=== PATIENT | female | born 1955 | race Caucasian/White ===

== ENCOUNTER 2017-08-13 13:06 | Outpatient (RCR) | payer OTHER | END 2017-08-20 13:27 | LOC: WSOH 13:06 | DX: S61.210A Laceration without foreign body of right index finger without damage to nail, initial encounter (principal); S60.021A Contusion of right index finger without damage to nail, initial encounter; W26.8XXA Contact with other sharp object(s), not elsewhere classified, initial encounter; Y99.0 Civilian activity done for income or pay ==

== ENCOUNTER → 2018-05-01 | Outpatient (CLI) | payer BC ==
[2018-05-01 11:56] LABS: URINE PROTEIN:CREAT RATIO 0.31 (0.00-0.14)
== END ==
LOC: COL.LAB 11:05
PROVIDERS: Internal Medicine Nephrology
DX: R80.8 Other proteinuria (principal)

== ENCOUNTER 2018-07-29 18:22 | Emergency (ER) | payer BC ==
[~2018-07-29] VITALS: Ht 170.2 cm; Wt 97.7 kg
[2018-07-29 18:25] VITALS: TEMP 98.5
[2018-07-29] MEDS ORDERED: CELEXA 20MG20 MG/TAB PO (18:42)
[2018-07-29] MEDS ORDERED: NORVASC 5MG5 MG/TAB PO (18:42)
[2018-07-29] MEDS ORDERED: LOPRESSOR 225 MG/TAB PO (18:43)
[2018-07-29] MEDS ORDERED: LOTENSIN40 MG PO (18:43)
[2018-07-29] MEDS ORDERED: SINGULAIR 110 MG/TAB PO (18:43)
[2018-07-29] MEDS ORDERED: HCTZ 25MG TAB25 MG PO (18:43)
[2018-07-29] MEDS ORDERED: SYNTHROID0.1 MG/TAB PO (18:44)
[2018-07-29] MEDS ORDERED: AMBIEN 10MG10 MG PO (18:44)
[2018-07-29] MEDS ORDERED: DOXYCYCLINE 10100 MG PO (19:38)
[2018-07-29 19:53] VITALS: BP 163/108; PULSE 60
== END 2018-07-29 19:53 | disposition home or self-care (01) ==
LOC: COL.ER 18:22
DX: M70.42 Prepatellar bursitis, left knee (principal); I10 Essential (primary) hypertension